=== PATIENT | male | born 1995 | race African-American/Black ===

== ENCOUNTER 2017-07-10 17:08 | Emergency (ER) | payer BC ==
[2017-07-10 18:58] LABS: BASOPHILS 0.3 % (0-2); EOSINOPHILS 0 % (0-7); LYMPHOCYTES 21.6 % (15-50); MCH 27.5 pg (26.0-34.0); MCV 78.4 fL (80.0-100.0); MEAN PLATELET VOLUME 11.7 fL (7.4-10.4); NEUTROPHILS 61.1 % (40-80); PLATELET COUNT 127 10x3/uL (130-400); RDW 13.8 % (11.5-14.5); WBC 3.5 10x3/uL (4.8-10.8)
== END 2017-07-10 19:25 | disposition home or self-care (01) ==
LOC: D.ER 17:08
PROVIDERS: Emergency Medicine
DX: J06.9 Acute upper respiratory infection, unspecified (principal)

== ENCOUNTER 2017-07-12 12:30 | Emergency (ER) | payer MEDICAID ==
[2017-07-12 13:50] LABS: HEMOGLOBIN 13.4 g/dL (13.5-17.5); MCHC 34.4 g/dL (31.0-37.0); MCV 78.6 fL (80.0-100.0); MEAN PLATELET VOLUME 11.5 fL (7.4-10.4); PLATELET COUNT 140 10x3/uL (130-400); RBC 4.96 10x6/uL (4.20-6.10); RDW 13.9 % (11.5-14.5)
[2017-07-12 13:57] LABS: WBC 2.6 10x3/uL (4.8-10.8)
[2017-07-12 14:00] LABS: APTT 43.6 SECONDS (22.8-39.4); INR 1.22 (0.85-1.17)
[2017-07-12 14:11] LABS: D-DIMER-QUANTITATIVE 1.39 ug/mLFEU (0.20-0.54)
[2017-07-12 14:12] LABS: ALBUMIN 3.5 g/dL (3.4-5.0); ALKALINE PHOSPHATASE 39 U/L (46-116); ALT (SGPT) 29 U/L (10-68); BILIRUBIN - TOTAL 0.29 mg/dL (0.2-1.3); CALC OSMOLALITY 270 mosm/kg (275-300); CALCIUM 8.8 mg/dL (8.5-10.1); CARBON DIOXIDE 28.7 mmol/L (21.0-32.0); CHLORIDE - SERUM 98 mmol/L (98-107); CREATININE - SERUM 1.1 mg/dL (0.6-1.3); GLUCOSE 92 mg/dL (74-106); POTASSIUM - SERUM 3.9 mmol/L (3.5-5.1); PROTEIN - SERUM 7.3 g/dL (6.4-8.2); SODIUM 136 mmol/L (136-145); UREA NITROGEN 9 mg/dL (7-18); eGFR NON AFRICAN AMERICAN > 90 mL/min (90-120)
[2017-07-12 14:18] LABS: CKMB 1.1 U/L (0.0-3.6); CREATINE KINASE 697 UL (21-232)
[2017-07-12 14:21] LABS: TROPONIN-I < 0.017 ng/mL (0.000-0.060)
[2017-07-12 14:39] LABS: BASOPHILS 1 % (0-2); LYMPHOCYTES 41 % (15-50); MONOCYTES 14 % (2-11); NEUTROPHILS 42 % (40-80); PLATELET ESTIMATE NORMAL
[2017-07-12 16:33] LABS: MONO NEGATIVE (NEGATIVE)
[2017-07-13 06:14] LABS: EBV - EARLY ANTIGEN AB IGG <9.0 U/mL (0.0-8.9); EBV VIRAL CAPSID AB IGG 22.8 U/mL (0.0-17.9); EBV VIRAL CAPSID AB IGM <36.0 U/mL (0.0-35.9)
== END 2017-07-12 16:44 | disposition home or self-care (01) ==
LOC: D.ER 12:30
PROVIDERS: Family Medicine
DX: J18.9 Pneumonia, unspecified organism (principal); F17.200 Nicotine dependence, unspecified, uncomplicated

== ENCOUNTER 2017-07-24 11:30 | Emergency (ER) | payer MEDICAID ==
[~2017-07-24] VITALS: Ht 180.3 cm; Wt 81.4 kg
[2017-07-24 11:56] VITALS: Ht 180.3 cm; Wt 81.4 kg
[2017-07-24] MEDS ORDERED: MIRALAX527 GM PO (13:11)
[2017-07-24 13:32] VITALS: BP 122/75
== END 2017-07-24 13:32 | disposition home or self-care (01) ==
LOC: D.ER 11:30
DX: K59.00 Constipation, unspecified (principal); R10.9 Unspecified abdominal pain

== ENCOUNTER 2019-08-11 09:23 | Emergency (ER) | payer MEDICAID ==
[~2019-08-11] VITALS: Ht 180.3 cm; Wt 82.3 kg
[~2019-08-11 09:23] MED LIST: MIRALAX527 GM PO
[2019-08-11 09:34] VITALS: Ht 180.3 cm; Wt 82.3 kg
[2019-08-11 09:53] LABS: BILIRUBIN NEGATIVE (NEGATIVE); GLUCOSE NEGATIVE (NEGATIVE); KETONE NEGATIVE (NEGATIVE); NITRITE NEGATIVE (NEGATIVE); UROBILINOGEN 4 mg/dL (NORMAL)
[2019-08-11 09:54] LABS: RED CELLS - URINE 0-5 /hpf (0-5); WHITE CELLS - URINE 25-50 /hpf (NEGATIVE)
[2019-08-11 09:55] LABS: BACTERIA FEW /hpf (NEGATIVE)
[2019-08-11 11:14] VITALS: BP 126/71
== END 2019-08-11 11:06 | disposition home or self-care (01) ==
LOC: D.ER 09:23
PROVIDERS: Family Medicine
DX: Z20.2 Contact with and (suspected) exposure to infections with a predominantly sexual mode of transmission (principal); R36.9 Urethral discharge, unspecified; R30.0 Dysuria